=== PATIENT | male | born 1995 | race Caucasian/White ===

== ENCOUNTER 2017-06-21 16:19 | Emergency (ER) | payer BC ==
[2017-06-21 17:17] LABS: Bilirubin Negative (Negative); Blood, Urine Negative (Negative); Glucose, Urine (Dipstick) Negative (Negative); Leukocyte Small (Negative); Nitrite Negative (Negative); Protein, Urine (Dipstick) Negative (Neg-Trace); Urobilinogen 0.2 mg/dL (0.2-1.0)
[2017-06-21 17:18] LABS: Clarity Hazy (Clear)
--- NOTE | 2017-06-21 17:37 | ULT ---
BILATERAL TESTICULAR ULTRASOUND WITH DOPPLER COLOR FLOW AND SPECTRAL DOPPLER: 06/21/17 HISTORY: Left sided scrotal pain. FINDINGS: The right testis measures 3 x 4.9 x 2.7 cm and the left testis measures 3.5 x 4.8 x 2.7 cm. There is good flow to the testis and epididymi. Bilateral small hydroceles are present. No testicular mass or microlithiasis is noted. The epididymi have a normal appearing and flow. There is increased flow during Valsalva in the tubular structures of the left extratesticular scrotum consistent with varicocele. IMPRESSION: Left sided varicocele. Urologic consultation is recommended. POS: [facility]
[2017-06-21 17:48] LABS: Bacteria/HPF 1+ HPF (None Seen); RBC/HPF None Seen HPF (0-3); Squamous Epithelial None Seen HPF (0-3)
[2017-06-21] MEDS ORDERED: cefTRIAXone\\ROCEPHIN 250 MG VIAL ONE (18:58)
[2017-06-21] MEDS ORDERED: Lidocaine 1% PF 5 ML VIAL ONE (18:58)
== END 2017-06-21 19:30 | disposition home or self-care (01) ==
LOC: SCSER 16:19
DX: N50.812 Left testicular pain (principal); G40.909 Epilepsy, unspecified, not intractable, without status epilepticus; Z79.899 Other long term (current) drug therapy
CPT/HCPCS: 76870; 81003; 81015; 87086; 93976; 96372; J0696; J2001